=== PATIENT | female | born 2000 | race Caucasian/White ===

== ENCOUNTER 2023-03-22 10:09 | Emergency (ER) | payer BC ==
[2023-03-22 11:19] LABS: SARS-CoV-2 NAA Rapid Test Not Detected (NotDetected)
[2023-03-22] MEDS ORDERED: Acetaminophen 500 MG TAB ONE (11:42)
== END 2023-03-22 11:56 | disposition home or self-care (01) ==
LOC: CSHERS 10:09
DX: J10.1 Influenza due to other identified influenza virus with other respiratory manifestations (principal); Z20.822 Contact with and (suspected) exposure to COVID-19
CPT/HCPCS: 36416; 99283